=== PATIENT | female | born 1995 | race Two or more races ===

== ENCOUNTER 2017-02-25 18:53 | Emergency (ER) | payer BC ==
[~2017-02-25] VITALS: Ht 149.9 cm; Wt 59.0 kg
[2017-02-25 18:53] VITALS: BP 134/58
[2017-02-25] MEDS ORDERED: MORPHINE SULFATE 2 MG/ML DISP.SYRIN. IV/SQ PRN (20:15)
--- NOTE | 2017-02-25 20:19 | PHYS DOC ---
Past History Past Medical History: No Pertinent History, Other Past Surgical History: No Surgical History, Other Alcohol Use: None Drug Use: None Adult General Chief Complaint Chief Complaint: FLANK PAIN [facility] HPI Patient is a 21 year old female who presents with left lower quadrant pain. She states it started around noon yesterday. It is worse when she tries to twist or walk. She states it gets up to 4 out of 10 otherwise is a 2 out of 10 when she just laying there is a dull achy pain. She denies any nausea vomiting fevers chills or dysuria. She is on her menstrual cycles on the last day or but denies any history of sexually transmitted infections. She denies any constipation or diarrhea. She denies any past surgical history. Review of Systems Review of Systems Constitutional: Denies fever or chills [] Eyes: Denies change in visual acuity, redness, or eye pain [] HENT: Denies nasal congestion or sore throat [] Respiratory: Denies cough or shortness of breath [] Cardiovascular: No additional information not addressed in HPI [] GI: Positive for abdominal pain, Denies nausea, vomiting, bloody stools or diarrhea [] : Denies dysuria or hematuria [] Musculoskeletal: Denies back pain or joint pain [] Integument: Denies rash or skin lesions [] Neurologic: Denies headache, focal weakness or sensory changes [] Endocrine: Denies polyuria or polydipsia [] Allergies Allergies Allergies Coded Allergies Type Severity Reaction Last Updated Verified No Known Drug Allergies 04/07/15 No Physical Exam Physical Exam Constitutional: Well developed, well nourished, no acute distress, non-toxic appearance. [] HENT: Normocephalic, atraumatic, bilateral external ears normal, oropharynx moist, no oral exudates, nose normal. [] Eyes: PERRLA, EOMI, conjunctiva normal, no discharge. [] Neck: Normal range of motion, no tenderness, supple, no stridor. [] Cardiovascular:Heart rate regular rhythm, no murmur [] Lungs & Thorax: Bilateral breath sounds clear to auscultation [] Abdomen: Bowel sounds normal, soft, mild tender palpation in the left lower quadrant no rebound or guarding, no masses, no pulsatile masses. Psoas sign negative, Romberg negative Skin: Warm, dry, no erythema, no rash. [] Back: No tenderness, no CVA tenderness. [] Extremities: No tenderness, no cyanosis, no clubbing, ROM intact, no edema. [] Neurologic: Alert and oriented X 3, normal motor function, normal sensory function, no focal deficits noted. [] Psychologic: Affect normal, judgement normal, mood normal. [] Current Patient Data Vital Signs Vital Signs Date Time Temp Pulse Resp B/P (MAP) Pulse Ox O2 Delivery O2 Flow Rate FiO2 02/25/17 18:53 98.3 85 16 100 Room Air Lab Results Laboratory Tests Test 02/25/17 20:12 POC Urine HCG, Qualitative hcg negative (Negative) EKG EKG [] Radiology/Procedures Radiology/[place] [address] IMAGING REPORT Signed PATIENT: RAMILA JOLLY ACCOUNT: [id number] : 1995 LOCATION: ER AGE: 21 SEX: F EXAM STATUS: REG ER ORD. PHYSICIAN: VICK FULLER MD REASON: llq pain PROCEDURE: US PELVIS W/TV Exam performed: Limited abdominal ultrasound and pelvic ultrasound. HISTORY: Left lower quadrant abdominal pain, patient's father had appendix on the left side. DATE OF SERVICE: 02/25/2017 comparison: None available TECHNIQUE: Real-time grayscale imaging of the left lower quadrant and pelvis is performed and images are obtained FINDINGS: Limited sonographic evaluation of the left lower quadrant is performed. Normal bowel is seen. No abnormal fluid collection is identified. The uterus is normal in size and echogenicity and measures 6.5 x 3.8 x 2.8 cm. The endometrial stripe measures 2.7 mm. Both ovaries are normal. The right ovary measures 3.4 x 2.0 x 1.8 cm the left ovary measures 3.1 x 1.3 x 1.3 cm. Symmetric vascularity to both ovaries. Small follicles are seen in both ovaries. IMPRESSION: Normal pelvic sonogram. No abnormal fluid collection or abnormal appendix noted. Electronically signed by: Sophie Sanders MD (02/25/2017 9:52 PM) [facility] DICTATED AND SIGNED BY: SOPHIE SANDERS MD DATE: 02/25/17 2145 CC: VICK FULLER MD; NON,STAFF ~ Impressions: Abdominal pain Course & Med Decision Making Course & Med Decision Making Pertinent Labs and Imaging studies reviewed. (See chart for details) Labs show any acute abnormality's. Ultrasound of the pelvic area addition to bilateral lower quadrants do not show appendicitis. At this point the patient's agreeable being discharged without pain meds and keep an eye on her symptoms and follow-up with primary care physician. Return precautions given she is agreeable plan being discharged in stable condition at this time. Dragon Disclaimer Dragon Disclaimer This chart was dictated in whole or in part using Voice Recognition software in a busy, high-work load, and often noisy Emergency Department environment. It may contain unintended and wholly unrecognized errors or omissions. Departure Departure: Impression: Primary Impression: Abdominal pain Disposition: HOME, SELF-CARE Condition: STABLE Referrals: NON,STAFF (PCP) Patient Instructions: Abdominal Pain Additional Instructions: Your blood work in addition to the ultrasound of your pelvis and bilateral lower quadrants did not show any signs of appendicitis or other abnormalities. Your being discharged home. Keep benign your symptoms gets worse, he developed fevers, nausea, diarrhea or other concerns please return back to the ER. Otherwise you should follow-up to primary care physician within the next few days. Problem Qualifiers Primary Impression: Abdominal pain Abdominal location: left lower quadrant Qualified Codes: R10.32 - Left lower quadrant pain VICK FULLER MD Feb 25, 2017 20:19
[2017-02-25 20:31] LABS: BILIRUBIN,URINE NEG (NEG); CLARITY,URINE HAZY; COLOR,URINE YELLOW; GLUCOSE,URINE NEG (NEG)
[2017-02-25 20:32] LABS: BACTERIA,URINE FEW /HPF (0-FEW); NITRITE,URINE NEG (NEG); SQUAMOUS EPITHELIAL CELL,UR MANY /LPF; UROBILINOGEN,URINE 0.2 mg/dL (0.2 mg/dL)
[2017-02-25 21:16] LABS: BASO % 0 % (0-3); EOS # 0.1 x10^3/uL (0.0-0.7); EOS % 1 % (0-3); HEMATOCRIT 36.5 % (36.0-47.0); HEMOGLOBIN 12.8 g/dL (12.0-15.5); LYMPH # 2.7 x10^3/uL (1.0-4.8); LYMPH % 35 % (24-48); MEAN CORPUSCULAR HEMOGLOBIN 34 pg (25-35); MEAN CORPUSCULAR HGB CONC 35 g/dL (31-37); MEAN CORPUSCULAR VOLUME 97 fL (79-100); MONO # 0.5 x10^3/uL (0.0-1.1); MONO % 7 % (0-9); NEUT # 4.4 x10^3uL (1.8-7.7); NEUT % 57 % (31-73); PLATELET COUNT 244 x10^3/uL (140-400); RED BLOOD COUNT 3.78 x10^6/uL (3.50-5.40); RED CELL DISTRIBUTION WIDTH 13.1 % (11.5-14.5); WHITE BLOOD COUNT 7.7 x10^3/uL (4.0-11.0)
[2017-02-25 21:26] LABS: ALBUMIN 4.1 g/dL (3.4-5.0); CALCIUM 9.1 mg/dL (8.5-10.1); CREATININE 0.9 mg/dL (0.6-1.0); DIRECT BILIRUBIN 0.1 mg/dL (0.0-0.2); POTASSIUM 3.7 mmol/L (3.5-5.1); TOTAL BILIRUBIN 0.3 mg/dL (0.2-1.0); TOTAL PROTEIN 7.3 g/dL (6.4-8.2)
--- NOTE | 2017-02-25 21:56 | RAD ---
Exam performed: Limited abdominal ultrasound and pelvic ultrasound. HISTORY: Left lower quadrant abdominal pain, patient's father had appendix on the left side. DATE OF SERVICE: 02/25/2017 comparison: None available TECHNIQUE: Real-time grayscale imaging of the left lower quadrant and pelvis is performed and images are obtained FINDINGS: Limited sonographic evaluation of the left lower quadrant is performed. Normal bowel is seen. No abnormal fluid collection is identified. The uterus is normal in size and echogenicity and measures 6.5 x 3.8 x 2.8 cm. The endometrial stripe measures 2.7 mm. Both ovaries are normal. The right ovary measures 3.4 x 2.0 x 1.8 cm the left ovary measures 3.1 x 1.3 x 1.3 cm. Symmetric vascularity to both ovaries. Small follicles are seen in both ovaries. IMPRESSION: Normal pelvic sonogram. No abnormal fluid collection or abnormal appendix noted. Electronically signed by: Sophie Naylor MD (02/25/2017 9:52 PM) [facility]
== END 2017-02-25 22:31 | disposition home or self-care (01) ==
LOC: ER 18:53
DX: R10.32 Left lower quadrant pain (principal)
CPT/HCPCS: 36415; 76705; 76830; 76856; 80048; 80076; 81001; 81025; 83690; 85025; 87086; 96374; 99285; J2270

== ENCOUNTER 2017-06-17 20:39 | Emergency (ER) | payer BC ==
[~2017-06-17] VITALS: Ht 149.9 cm; Wt 56.6 kg
[2017-06-17] MEDS ORDERED: IBUPROFEN 400 MG TABLET. PO ONE (21:15)
[2017-06-17] MEDS ORDERED: GUAI600T47 PO (21:50)
[2017-06-17] MEDS ORDERED: FLUT9.9S NS (21:50)
--- NOTE | 2017-06-17 21:51 | PHYS DOC ---
General Chief Complaint: EARACHE/EAR PAIN Stated Complaint: RIGHT EARACHE Time Seen by MD: 21:49 Source: patient Exam Limitations: no limitations Problems: History of Present Illness Initial Comments Patient is a 21-year-old female who comes to the ED complaining of right ear pain. Patient states that she developed right ear pain earlier today. She denies muffled hearing ear discharge or trauma. She has had 2 days of clear nasal discharge, bilateral maxillary pressure and scratchy throat. She denies actual sore throat or pain with swallowing, no fever chills sweats or myalgias no headache neck pain or stiffness no rash. No pre-arrival treatment patient is normally healthy. ED vital signs are stable. Timing/Duration: other Severity: mild Location: ear (R), facial Prearrival Treatment: other Modifying Factors: improves with other Associated Symptoms: facial pain/swelling, nasal congestion/drainage, other Allergies: Coded Allergies: No Known Drug Allergies (Unverified , 04/07/15) Past Medical History Medical History: no pertinent history Surgical History: noncontributory Social History Smoker: non-smoker Alcohol: none Drugs: none Constitutional: denies chills, denies diaphoresis, denies fever Ears: see HPI Nose: see HPI Throat: see HPI Respiratory: denies cough, denies shortness of breath Cardiovascular: denies chest pain, denies syncope Gastrointestinal: denies nausea, denies vomiting Physical Exam General Appearance: WD/WN, no apparent distress Eyes: bilateral eye normal inspection, bilateral eye PERRL, bilateral eye EOMI Ears: bilateral ear auricle normal, bilateral ear canal normal, bilateral ear TM normal Nose: normal inspection Mouth/Throat: other (clear postnasal drip airway is patent) Neck: non-tender, full range of motion, supple Cardiovascular/Respiratory: normal peripheral pulses, normal breath sounds, no respiratory distress 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 [id number] Tylenol and ibuprofen as needed. Prescription: Guaifenesin, Flonase Follow-up with in 7-10 days if not better. Return to ED with new or changing symptoms. JORGE LUIS PHILIP DO Jun 17, 2017 21:51
[2017-06-17 22:00] VITALS: BP 122/72
== END 2017-06-17 22:02 | disposition home or self-care (01) ==
LOC: ER 20:39
DX: H92.01 Otalgia, right ear (principal); J06.9 Acute upper respiratory infection, unspecified; B97.89 Other viral agents as the cause of diseases classified elsewhere
CPT/HCPCS: 99283